=== PATIENT | female | born 1950 | race Caucasian/White ===

== ENCOUNTER 2018-02-04 08:17 | Outpatient (CLI) | payer OTHER | END 2018-02-04 08:25 | disposition home or self-care (01) | LOC: SONOGRAMA 08:17 | DX: E04.0 Nontoxic diffuse goiter (principal) ==

== ENCOUNTER 2018-03-20 10:59 | Outpatient (CLI) | payer OTHER | END 2018-03-20 11:30 | disposition home or self-care (01) | LOC: NUCLEAR 10:59 | DX: I87.2 Venous insufficiency (chronic) (peripheral) (principal); I70.213 Atherosclerosis of native arteries of extremities with intermittent claudication, bilateral legs ==

== ENCOUNTER → 2018-03-21 | Outpatient (CLI) | payer OTHER | END | disposition home or self-care (01) | LOC: NUCLEAR 10:00 | DX: I87.2 Venous insufficiency (chronic) (peripheral) (principal); I70.213 Atherosclerosis of native arteries of extremities with intermittent claudication, bilateral legs ==

== ENCOUNTER 2018-07-16 14:47 | Outpatient (CLI) | payer OTHER | END 2018-07-16 15:01 | disposition home or self-care (01) | LOC: MAMO-SONO 14:47 | DX: Z12.31 Encounter for screening mammogram for malignant neoplasm of breast (principal); Z87.898 Personal history of other specified conditions; N64.89 Other specified disorders of breast ==

== ENCOUNTER 2019-12-30 09:41 | Outpatient (CLI) | payer OTHER | END 2019-12-30 10:13 | disposition home or self-care (01) | LOC: NUCLEAR 09:41 | DX: E11.22 Type 2 diabetes mellitus with diabetic chronic kidney disease (principal); E11.69 Type 2 diabetes mellitus with other specified complication; I12.9 Hypertensive chronic kidney disease with stage 1 through stage 4 chronic kidney disease, or unspecified chronic kidney disease; Z68.29 Body mass index [BMI] 29.0-29.9, adult; M81.0 Age-related osteoporosis without current pathological fracture; G47.23 Circadian rhythm sleep disorder, irregular sleep wake type; Z13.820 Encounter for screening for osteoporosis; E78.2 Mixed hyperlipidemia ==

== ENCOUNTER 2021-04-27 09:56 | Outpatient (CLI) | payer OTHER | END 2021-04-27 10:05 | disposition home or self-care (01) | LOC: MAMO-SONO 09:56 | PROVIDERS: ATTEND Internal Medicine Cardiovascular Disease | DX: E04.2 Nontoxic multinodular goiter (principal); Z12.31 Encounter for screening mammogram for malignant neoplasm of breast ==

== ENCOUNTER 2023-03-15 10:51 | Outpatient (CLI) | payer OTHER | END 2023-03-15 10:58 | disposition home or self-care (01) | LOC: MAMO-SONO 10:51 | PROVIDERS: ATTEND General Practice | DX: R92.0 Mammographic microcalcification found on diagnostic imaging of breast (principal) ==